=== PATIENT | male | born 1980 | race Caucasian/White ===

== ENCOUNTER 2017-09-25 16:46 | Emergency (ER) | payer OTHER ==
[~2017-09-25] VITALS: Ht 175.3 cm; Wt 120.2 kg
--- NOTE | 2017-09-25 18:02 | PHYS DOC ---
Adult General Chief Complaint Chief Complaint: CHEST PAIN HPI HPI Patient is a 37 year old male presents with exertional shortness of breath and left-sided chest pain which is been intermittent for the past 2 months but continuous for the past 3 hours. Patient reports shortness of breath or inability to catch deep breath. Denies history of asthma chronic respiratory illness. Patient states left-sided chest pain is located over left pectoral region is nonradiating. No fever, chills, nausea vomiting or sweats. No leg pain or swelling. No history DVT or PE. No history of early coronary disease. She has history of hypertension and migraines.[] Review of Systems Review of Systems Review of symptoms as per history of present illness. All other review symptoms are negative. All other systems were reviewed and found to be within normal limits, except as documented in this note. Physical Exam Physical Exam Constitutional: Well developed, well nourished, no acute distress, non-toxic appearance. [] HENT: Normocephalic, atraumatic, bilateral external ears normal, nose normal. [] Eyes: PERRLA, EOMI, conjunctiva normal. [] Neck: Normal range of motion, no tenderness. [] Cardiovascular:Heart rate regular rhythm. [] Lungs & Thorax: Bilateral breath sounds clear to auscultation. [] Abdomen: Bowel sounds normal, soft, no tenderness. [] Skin: Warm, dry, no erythema. [] Back: No tenderness. [] Extremities: No tenderness, no cyanosis, no clubbing, ROM intact, no edema. [] Neurologic: Alert and oriented, normal motor function, normal sensory function, no focal deficits noted. [] Psychologic: Affect normal, judgement normal, mood normal. [] EKG EKG [EKG: ] Radiology/Procedures Radiology/Procedures [] Course & Med Decision Making Course & Med Decision Making Pertinent Labs and Imaging studies reviewed. (See chart for details) [Work up in progress. Care endorsed to [facility] at 1800.] Dragon Disclaimer Dragon Disclaimer This electronic medical record was generated, in whole or in part, using a voice recognition dictation system. Departure Departure Referrals: RUSSELL FARAH MD (PCP) LAISHA GUILLERMO DO Sep 25, 2017 18:02
[2017-09-25 18:13] LABS: BASO # 0.1 x10^3/uL (0.0-0.2); BASO % 1 % (0-3); EOS # 0.1 x10^3/uL (0.0-0.7); EOS % 1 % (0-3); LYMPH # 2.3 x10^3/uL (1.0-4.8); LYMPH % 24 % (24-48); MEAN CORPUSCULAR HEMOGLOBIN 27 pg (25-35); MEAN CORPUSCULAR HGB CONC 34 g/dL (31-37); MEAN CORPUSCULAR VOLUME 81 fL (79-100); MONO # 0.9 x10^3/uL (0.0-1.1); MONO % 9 % (0-9); NEUT # 6.4 x10^3uL (1.8-7.7); NEUT % 65 % (31-73); PLATELET COUNT 395 x10^3/uL (140-400); RED BLOOD COUNT 2.42 x10^6/uL (4.30-5.70); RED CELL DISTRIBUTION WIDTH 15.3 % (11.5-14.5); WHITE BLOOD COUNT 9.8 x10^3/uL (4.0-11.0)
[2017-09-25 18:16] LABS: HEMATOCRIT 19.6 % (39.0-53.0); HEMOGLOBIN 6.6 g/dL (13.0-17.5)
--- NOTE | 2017-09-25 18:21 | RAD ---
AP chest. HISTORY: Chest pain, short of breath AP view was taken of the chest. Lungs are clear. Heart is normal in size without heart failure. There is pleural thickening on the right. There is no definite effusion. IMPRESSION: 1. Pleural thickening on the right. 2. No acute infiltrates. Electronically signed by: Kenton Williamson MD (09/25/2017 6:17 PM) [facility]
[2017-09-25 18:28] LABS: CALCIUM 8.3 mg/dL (8.5-10.1); CREATININE 1.6 mg/dL (0.7-1.3); GFR 48.4; POTASSIUM 3.8 mmol/L (3.5-5.1)
--- NOTE | 2017-09-25 19:19 | EKG ---
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
[2017-09-25 21:16] VITALS: BP 109/59
== END 2017-09-25 21:25 | disposition short-term general hospital (02) ==
LOC: ER 16:46
DX: R07.89 Other chest pain (principal)
CPT/HCPCS: 36415; 71045; 80048; 82550; 83880; 84484; 85025; 85379; 93005; 99285